=== PATIENT | female | born 1970 | race Caucasian/White ===

== ENCOUNTER 2025-04-07 17:34 | Emergency (ER) | payer SELFPAY ==
[~2025-04-07] VITALS: Ht 167.6 cm; Wt 79.4 kg
[2025-04-07] MEDS ORDERED: Tdap Vaccine 0.5 ML SYR (Adult Vaccine) IM ONE (17:50)
[2025-04-07] MEDS ORDERED: ceFAZolin sodium 1 GM in SYRINGE INFUSION 10 ML IV ONE (18:50)
[2025-04-07] MEDS ORDERED: SODIUM CHLORIDE 0.9% 1,000 ML IV ONE (18:50)
[2025-04-07] MEDS ORDERED: ceFAZolin sodium/sodium chlor 10 ML IV ONE (19:30)
[2025-04-07] MEDS ORDERED: CEPHALEXIN500 M1 PO (21:30)
[2025-04-07] MEDS ORDERED: Bacitracin Zinc 14 GM TUBE T ONE (21:35)
== END 2025-04-07 21:33 | disposition home or self-care (01) ==
LOC: ED 17:34
DX: S81.811A Laceration without foreign body, right lower leg, initial encounter (principal); W55.22XA Struck by cow, initial encounter; Y93.89 Activity, other specified; Y92.89 Other specified places as the place of occurrence of the external cause; Y99.8 Other external cause status